=== PATIENT | male | born 1975 | race Two or more races ===

== ENCOUNTER 2019-12-15 04:29 | Inpatient (IN) | payer MEDICAID ==
[~2019-12-15] VITALS: Ht 162.6 cm; Wt 78.6 kg
[2019-12-15 06:25] LABS: BASOPHILS % 0.4 % (0.0-2.0); EOSINOPHILS % 0.1 % (0.0-5.0); HEMOGLOBIN. 12.1 g/dL (14.0-18.0); LYMPHOCYTES % 29.9 % (20.0-50.0); MEAN CORPUSCULAR HEMOGLOBIN 26.1 pg (28.0-32.0); MEAN CORPUSCULAR VOLUME 79.7 fL (80.0-94.0); MEAN PLATELET VOLUME 8.8 fl (7.4-10.4); MONOCYTES % 12.1 % (2.0-8.0); NEUTROPHILS % 57.5 % (40.0-76.0); PLATELET 99 x1000/uL (130-400); RED BLOOD CELL COUNT 4.65 mill/uL (4.7-6.1); RED CELL DISTRIBUTION WIDTH 24.7 % (11.6-14.6)
[2019-12-15 06:47] LABS: CHLORIDE 89 mEq/L (98-107)
[2019-12-15 06:53] LABS: ETHANOL BLOOD 50 mg/dL
[2019-12-15 07:20] LABS: CLARITY URINE CLEAR (CLEAR); COLOR URINE DARK YELLOW (YELLOW); KETONES URINE 3+ (NEGATIVE); LEUKOCYTE ESTERASE URINE TRACE (NEGATIVE); NITRITE URINE NEGATIVE (NEGATIVE); OCCULT BLOOD URINE NEGATIVE (NEGATIVE); PH URINE 7.5 (4.5-8.0); PROTEIN URINE 2+ (NEGATIVE); SPECIFIC GRAVITY URINE 1.026 (1.005-1.030)
[2019-12-15 08:49] LABS: *AMPHETAMINES SCREEN URINE NEGATIVE (NEGATIVE)
[2019-12-15 08:50] LABS: *BARBITURATES SCREEN URINE NEGATIVE (NEGATIVE); *BENZODIAZEPINES SCREEN URINE NEGATIVE (NEGATIVE); *COCAINE SCREEN URINE NEGATIVE (NEGATIVE); METHADONE URINE SCREEN NEGATIVE (NEGATIVE); OPIATES URINE SCREEN NEGATIVE (NEGATIVE); PHENCYCLIDINE URINE SCREEN NEGATIVE (NEGATIVE)
[2019-12-15 08:51] LABS: CANNABINOID URINE SCREEN NEGATIVE (NEGATIVE)
[2019-12-15 10:21] LABS: PLATELET ESTIMATE SLIGHTLY DECREASED
[2019-12-15] MEDS ORDERED: ONDANSETRON HCL 4MG/2ML INJ IV ONE (12:00)
[2019-12-15] MEDS ORDERED: SODIUM CHLORIDE 0.9% 1,000 ML IV ONE (12:00)
[2019-12-15] MEDS ORDERED: IOHEXOL-300 100 ML BOTTLE ONE (14:23)
[2019-12-15] MEDS ORDERED: DIPHENHYDRAMINE 50MG/ML VIAL IV PRN (14:30)
[2019-12-15] MEDS ORDERED: ONDANSETRON HCL 4MG/2ML INJ IV PRN (14:30)
[2019-12-15 14:55] LABS: PHOSPHORUS 2.1 mg/dL (2.5-4.9)
[2019-12-15] MEDS: SODIUM CHLORIDE 0.9% 1,000 ML IV SCH ×2 (15:26→23:54)
[2019-12-15] MEDS ORDERED: POTASSIUM CHLORIDE INJ 40 MEQ in DEXT 5% WATER 500 ML IV NR (15:30)
[2019-12-15 16:00] VITALS: BP 119/78
[2019-12-15] MEDS ORDERED: MVI, ADULT NO.1 10 ML, FOLIC ACID 1 MG, THIAMINE HCL 100 MG in SODIUM CHLORIDE 0.9% 1,0... IV SCH ×4 (16:00)
[2019-12-15 16:21] VITALS: BP 115/87
[2019-12-15 16:30] VITALS: BP 121/80
[2019-12-15 20:00] VITALS: BP 117/77
[2019-12-15] MEDS: FAMOTIDINE 20MG/2ML VIAL IV SCH (20:50)
[2019-12-16] VITALS: BP 114/75
[2019-12-16 04:00] VITALS: BP 108/70
[2019-12-16] MEDS: LORAZEPAM 2MG/ML CPJ IV PRN ×4 (05:19→20:41)
[2019-12-16 06:19] LABS: HEMATOCRIT. 30.6 % (42.0-52.0); HEMOGLOBIN. 10.2 g/dL (14.0-18.0); MEAN CORPUSCULAR HEMOGLOBIN 26.6 pg (28.0-32.0); MEAN CORPUSCULAR VOLUME 79.7 fL (80.0-94.0); PLATELET 71 x1000/uL (130-400); RED BLOOD CELL COUNT 3.84 mill/uL (4.7-6.1); RED CELL DISTRIBUTION WIDTH 23.5 % (11.6-14.6)
[2019-12-16 06:26] LABS: CHLORIDE 96 mEq/L (98-107)
[2019-12-16 08:00] VITALS: BP 118/71
[2019-12-16] MEDS: FAMOTIDINE 20MG/2ML VIAL IV SCH ×2 (09:41→21:10)
[2019-12-16] MEDS ORDERED: DIPHENHYDRAMINE 50MG/ML VIAL IV NR (10:45)
[2019-12-16] MEDS ORDERED: HALOPERIDOL LACTATE 5MG/ML VIAL IM NR (10:45)
[2019-12-16 12:00] VITALS: BP 113/77
[2019-12-16] MEDS: CHLORDIAZEPOXIDE 25MG CAPSULE PO SCH ×2 (13:27→21:10)
[2019-12-16 16:00] VITALS: BP 117/78
[2019-12-16] MEDS: POTASSIUM CHLORIDE 20MEQ/PACKET PO NR ×2 (18:14→18:25)
[2019-12-16] MEDS ORDERED: POTASSIUM PHOS,M-BASIC-D-BASIC 20 MMOL in DEXT 5% WATER 243.3333 ML IV ONE (19:30)
[2019-12-16 20:00] VITALS: BP 116/65
[2019-12-16] MEDS ORDERED: POTASSIUM CHLORIDE INJ 40 MEQ in DEXT 5% WATER 500 ML IV SCH (20:00)
[2019-12-16] MEDS ORDERED: POTASSIUM CHLORIDE 20MEQ/PACKET PO NR (21:00)
[2019-12-16] MEDS ORDERED: POTASSIUM CHLORIDE INJ 40 MEQ in DEXT 5% WATER 500 ML IV ONE (23:30)
[2019-12-17] VITALS: BP 111/69
[2019-12-17 01:21] LABS: PLATELET ESTIMATE SLIGHTLY DECREASED
[2019-12-17 04:00] VITALS: BP 115/61
[2019-12-17] MEDS: LORAZEPAM 2MG/ML CPJ IV PRN ×3 (04:46→16:52)
[2019-12-17] MEDS: CHLORDIAZEPOXIDE 25MG CAPSULE PO SCH ×3 (06:38→21:02)
[2019-12-17 07:16] LABS: BASOPHILS % 0.3 % (0.0-2.0); EOSINOPHILS % 0.2 % (0.0-5.0); HEMATOCRIT. 32.2 % (42.0-52.0); HEMOGLOBIN. 10.6 g/dL (14.0-18.0); LYMPHOCYTES % 9.5 % (20.0-50.0); MEAN CORPUSCULAR HEMOGLOBIN 26.7 pg (28.0-32.0); MEAN CORPUSCULAR VOLUME 81.5 fL (80.0-94.0); MEAN PLATELET VOLUME 8.9 fl (7.4-10.4); MONOCYTES % 13.2 % (2.0-8.0); NEUTROPHILS % 76.8 % (40.0-76.0); PLATELET 78 x1000/uL (130-400); RED BLOOD CELL COUNT 3.95 mill/uL (4.7-6.1); RED CELL DISTRIBUTION WIDTH 23.4 % (11.6-14.6)
[2019-12-17 07:20] LABS: CHLORIDE 102 mEq/L (98-107)
[2019-12-17 07:25] LABS: PHOSPHORUS 2.7 mg/dL (2.5-4.9)
[2019-12-17] MEDS: SODIUM CHLORIDE 0.9% 1,000 ML IV SCH ×2 (07:28→16:51)
[2019-12-17 08:00] VITALS: BP 109/75
[2019-12-17] MEDS: FAMOTIDINE 20MG/2ML VIAL IV SCH ×2 (08:45→21:01)
[2019-12-17] MEDS: HALOPERIDOL LACTATE 5MG/ML VIAL IM PRN ×2 (08:48→21:02)
[2019-12-17] MEDS ORDERED: POTASSIUM CHLORIDE INJ 40 MEQ in DEXT 5% WATER 500 ML IV NR ×2 (09:00→15:00)
[2019-12-17] MEDS ORDERED: ACETAMINOPHEN 650MG/20.3ML UDC PO PRN (11:45)
[2019-12-17 12:00] VITALS: BP 129/78
[2019-12-17 16:00] VITALS: BP 101/61
[2019-12-17 20:00] VITALS: BP 112/73
[2019-12-18] VITALS (7 sets, daily range): BP systolic 89–152; BP diastolic 54–85
[2019-12-18] MEDS: SODIUM CHLORIDE 0.9% 1,000 ML IV SCH ×2 (02:26→13:25)
[2019-12-18] MEDS: LORAZEPAM 2MG/ML CPJ IV PRN (02:26)
[2019-12-18] MEDS: CHLORDIAZEPOXIDE 25MG CAPSULE PO SCH ×3 (06:11→21:32)
[2019-12-18] MEDS: FAMOTIDINE 20MG/2ML VIAL IV SCH ×2 (09:36→21:32)
[2019-12-19] VITALS: BP 97/56
[2019-12-19 04:00] VITALS: BP 103/71
[2019-12-19] MEDS: SODIUM CHLORIDE 0.9% 1,000 ML IV SCH ×3 (05:56→17:10)
[2019-12-19] MEDS: CHLORDIAZEPOXIDE 25MG CAPSULE PO SCH ×3 (05:59→21:34)
[2019-12-19 06:57] LABS: HEMATOCRIT. 31.3 % (42.0-52.0); HEMOGLOBIN. 10.3 g/dL (14.0-18.0); MEAN CORPUSCULAR HEMOGLOBIN 27.2 pg (28.0-32.0); MEAN CORPUSCULAR VOLUME 82.4 fL (80.0-94.0); MEAN PLATELET VOLUME 8.8 fl (7.4-10.4); PLATELET 113 x1000/uL (130-400); RED CELL DISTRIBUTION WIDTH 22.5 % (11.6-14.6)
[2019-12-19 07:41] LABS: CHLORIDE 105 mEq/L (98-107)
[2019-12-19 07:50] LABS: PHOSPHORUS 3.4 mg/dL (2.5-4.9)
[2019-12-19 08:00] VITALS: BP 106/71
[2019-12-19] MEDS: FAMOTIDINE 20MG/2ML VIAL IV SCH ×2 (08:09→21:34)
[2019-12-19 12:00] VITALS: BP 106/64
[2019-12-19 16:00] VITALS: BP 93/55
[2019-12-19 18:06] LABS: PLATELET ESTIMATE DECREASED
[2019-12-19 20:00] VITALS: BP 112/59
[2019-12-19] MEDS: HALOPERIDOL LACTATE 5MG/ML VIAL IM PRN (21:34)
[2019-12-20] VITALS: BP 113/79
[2019-12-20 04:00] VITALS: BP 140/59
[2019-12-20] MEDS: CHLORDIAZEPOXIDE 25MG CAPSULE PO SCH ×3 (06:08→20:59)
[2019-12-20 08:00] VITALS: BP 111/72
[2019-12-20] MEDS: FAMOTIDINE 20MG/2ML VIAL IV SCH ×2 (09:39→20:59)
[2019-12-20] MEDS: THIAMINE HCL 100MG TABLET PO SCH (09:39)
[2019-12-20] MEDS: SODIUM CHLORIDE 0.9% 1,000 ML IV SCH ×2 (09:49→13:36)
[2019-12-20 12:00] VITALS: BP 100/66
[2019-12-20 16:00] VITALS: BP 100/68
[2019-12-20 20:00] VITALS: BP 96/55
[2019-12-21] VITALS: BP 104/71
[2019-12-21 04:00] VITALS: BP 101/62
[2019-12-21] MEDS: CHLORDIAZEPOXIDE 25MG CAPSULE PO SCH (06:14)
[2019-12-21 08:00] VITALS: BP 94/56
[2019-12-21] MEDS: THIAMINE HCL 100MG TABLET PO SCH (09:21)
[2019-12-21] MEDS: FAMOTIDINE 20MG/2ML VIAL IV SCH ×2 (09:21→20:14)
[2019-12-21] MEDS ORDERED: LORAZEPAM 1MG TABLET PO PRN (10:30)
[2019-12-21 12:00] VITALS: BP 94/58
[2019-12-21 16:00] VITALS: BP 104/71
[2019-12-21 20:00] VITALS: BP 99/60
[2019-12-22] VITALS: BP 111/63
[2019-12-22 04:00] VITALS: BP 102/52
[2019-12-22 08:00] VITALS: BP 115/70
[2019-12-22] MEDS: THIAMINE HCL 100MG TABLET PO SCH (09:03)
[2019-12-22] MEDS: FAMOTIDINE 20MG/2ML VIAL IV SCH (09:04)
[2019-12-22 12:00] VITALS: BP 92/58
[2019-12-22 16:16] VITALS: BP 97/58
== END 2019-12-22 17:17 | disposition home or self-care (01) | DRG 241 ==
LOC: ER 04:29 → 6EST 11:51 → ENRESERV 12:43 → 6EST 12-16 17:00
PROVIDERS: ADMIT Internal Medicine; ATTEND Internal Medicine
DX: K29.70 Gastritis, unspecified, without bleeding (principal); G92 Toxic encephalopathy; F10.231 Alcohol dependence with withdrawal delirium; E87.6 Hypokalemia; K76.0 Fatty (change of) liver, not elsewhere classified; E87.1 Hypo-osmolality and hyponatremia; R42 Dizziness and giddiness; Y90.9 Presence of alcohol in blood, level not specified; F10.229 Alcohol dependence with intoxication, unspecified
CPT/HCPCS: 36415; 71045; 74177; 80048; 80053; 80305; 80320; 81003; 82140; 83735; 84100; 84484; 85025; 93005; 97116; 97162; 97166; 99285; J1200; J1630; J2060; J2405; J3411; J3480; J3490; J7030; J7060; Q9967; G0480

== ENCOUNTER 2021-01-22 19:57 | Inpatient (IN) | payer MEDICAID ==
[~2021-01-22] VITALS: Ht 172.7 cm; Wt 90.7 kg
[2021-01-22] MEDS ORDERED: ONDANSETRON HCL 4MG/2ML INJ IV STA (22:46)
[2021-01-22] MEDS ORDERED: PANTOPRAZOLE SODIUM 40 MG/VIAL IV STA (22:46)
[2021-01-22] MEDS ORDERED: SODIUM CHLORIDE 0.9% 1,000 ML IV ONE (23:00)
[2021-01-22] MEDS ORDERED: PANTOPRAZOLE 80 MG in SODIUM CHLORIDE 0.9% 100 ML IV SCH (23:15)
[2021-01-22 23:37] LABS: BASOPHILS % 0.3 % (0.0-2.0); HEMATOCRIT. 28.7 % (42.0-52.0); HEMOGLOBIN. 10.1 g/dL (14.0-18.0); MEAN CORPUSCULAR HEMOGLOBIN 34.4 pg (28.0-32.0); MEAN CORPUSCULAR VOLUME 97.4 fL (80.0-94.0); MEAN PLATELET VOLUME 9.6 fl (7.4-10.4); MONOCYTES % 7.8 % (2.0-8.0); NEUTROPHILS % 68.9 % (40.0-76.0); PLATELET 52 x1000/uL (130-400); RED BLOOD CELL COUNT 2.95 mill/uL (4.7-6.1); RED CELL DISTRIBUTION WIDTH 15.1 % (11.6-14.6)
[2021-01-22 23:38] LABS: CHLORIDE 94 mEq/L (98-107)
[2021-01-22 23:41] LABS: INR 1.3; PROTHROMBIN TIME 13.3 sec (9.6-11.0)
[2021-01-22 23:42] LABS: ETHANOL BLOOD 269 mg/dL
[2021-01-23] MEDS: PANTOPRAZOLE 80 MG in SODIUM CHLORIDE 0.9% 100 ML IV SCH ×2 (01:35→14:03)
[2021-01-23] MEDS ORDERED: SODIUM CHLORIDE 0.9% 1,000 ML IV ONE (02:30)
[2021-01-23 02:46] LABS: CLARITY URINE CLEAR (CLEAR); COLOR URINE YELLOW (YELLOW); KETONES URINE NEGATIVE (NEGATIVE); LEUKOCYTE ESTERASE URINE NEGATIVE (NEGATIVE); NITRITE URINE NEGATIVE (NEGATIVE); OCCULT BLOOD URINE TRACE (NEGATIVE); PH URINE 6.5 (4.5-8.0); PROTEIN URINE NEGATIVE (NEGATIVE); SPECIFIC GRAVITY URINE 1.014 (1.005-1.030)
[2021-01-23 03:36] LABS: *AMPHETAMINES SCREEN URINE NEGATIVE (NEGATIVE); *BARBITURATES SCREEN URINE NEGATIVE (NEGATIVE); *BENZODIAZEPINES SCREEN URINE NEGATIVE (NEGATIVE)
[2021-01-23 03:37] LABS: *COCAINE SCREEN URINE NEGATIVE (NEGATIVE); CANNABINOID URINE SCREEN NEGATIVE (NEGATIVE); METHADONE URINE SCREEN NEGATIVE (NEGATIVE); OPIATES URINE SCREEN NEGATIVE (NEGATIVE); PHENCYCLIDINE URINE SCREEN NEGATIVE (NEGATIVE)
[2021-01-23] MEDS ORDERED: IOHEXOL-300 100 ML BOTTLE ONE (06:38)
[2021-01-23 10:00] VITALS: BP 99/59
[2021-01-23 11:00] VITALS: BP 99/59
[2021-01-23 12:00] VITALS: BP 102/65
[2021-01-23] MEDS ORDERED: MAGNESIUM/ALUMINUM HYDROXIDE/SIMETHICONE 30ML UDC PO PRN (15:00)
[2021-01-23] MEDS ORDERED: ACETAMINOPHEN 325MG TABLET PO PRN ×2 (15:00)
[2021-01-23] MEDS ORDERED: ONDANSETRON HCL 4MG/2ML INJ IV PRN (15:00)
[2021-01-23] MEDS ORDERED: CLONIDINE 0.1MG TABLET PO PRN (15:00)
[2021-01-23] MEDS ORDERED: DIPHENHYDRAMINE 50MG/ML VIAL IV PRN (15:00)
[2021-01-23] MEDS ORDERED: POTASSIUM CHLORIDE 20MEQ TABLET SR PO NR (15:00)
[2021-01-23] MEDS: SODIUM CHLORIDE 0.9% 1,000 ML IV SCH ×2 (15:00→23:42)
[2021-01-23 16:00] VITALS: BP 109/70
[2021-01-23] MEDS: PANTOPRAZOLE SODIUM 40 MG/VIAL IV SCH (16:30)
[2021-01-23] MEDS ORDERED: MVI, ADULT NO.1 10 ML, FOLIC ACID 1 MG, THIAMINE HCL 100 MG in SODIUM CHLORIDE 0.9% 1,0... IV ONE (16:30)
[2021-01-23] MEDS: SUCRALFATE 1 G/10 ML UDC PO SCH ×2 (16:30→20:06)
[2021-01-23 19:51] VITALS: BP 96/58
[2021-01-23] MEDS: DIAZEPAM 5 MG TABLET PO SCH (20:06)
[2021-01-24] VITALS (7 sets, daily range): BP systolic 99–114; BP diastolic 55–76
[2021-01-24] MEDS ORDERED: MAGNESIUM 2 G PREMIX 50 ML IV SCH (03:00)
[2021-01-24] MEDS: PANTOPRAZOLE SODIUM 40 MG/VIAL IV SCH ×2 (05:07→17:28)
[2021-01-24] MEDS: SUCRALFATE 1 G/10 ML UDC PO SCH ×4 (06:07→21:26)
[2021-01-24 06:29] LABS: BASOPHILS % 0.3 % (0.0-2.0); EOSINOPHILS % 0.5 % (0.0-5.0); HEMATOCRIT. 24.7 % (42.0-52.0); HEMOGLOBIN. 8.5 g/dL (14.0-18.0); LYMPHOCYTES % 20.4 % (20.0-50.0); MEAN CORPUSCULAR HEMOGLOBIN 34.9 pg (28.0-32.0); MEAN CORPUSCULAR VOLUME 100.7 fL (80.0-94.0); MEAN PLATELET VOLUME 9.9 fl (7.4-10.4); MONOCYTES % 11.5 % (2.0-8.0); NEUTROPHILS % 67.3 % (40.0-76.0); RED BLOOD CELL COUNT 2.45 mill/uL (4.7-6.1); RED CELL DISTRIBUTION WIDTH 14.7 % (11.6-14.6)
[2021-01-24 06:40] LABS: CHLORIDE 99 mEq/L (98-107)
[2021-01-24 06:45] LABS: PLATELET 39 x1000/uL (130-400)
[2021-01-24 06:49] LABS: PHOSPHORUS 2.1 mg/dL (2.5-4.9)
[2021-01-24] MEDS ORDERED: POTASSIUM CHLORIDE 20MEQ TABLET SR PO SCH (08:45)
[2021-01-24] MEDS ORDERED: POTASSIUM PHOS,M-BASIC-D-BASIC 20 MMOL in DEXT 5% WATER 250 ML IV SCH (10:00)
[2021-01-24] MEDS: DIAZEPAM 5 MG TABLET PO SCH ×2 (10:32→19:54)
[2021-01-24] MEDS: SODIUM CHLORIDE 0.9% 1,000 ML IV SCH ×2 (11:00→21:00)
[2021-01-25] VITALS: BP 106/59
[2021-01-25 04:00] VITALS: BP 111/71
[2021-01-25] MEDS: PANTOPRAZOLE SODIUM 40 MG/VIAL IV SCH ×2 (05:01→18:08)
[2021-01-25] MEDS: LORAZEPAM 2MG/ML CPJ IV PRN ×4 (06:19→23:03)
[2021-01-25] MEDS: SODIUM CHLORIDE 0.9% 1,000 ML IV SCH ×2 (06:20→18:08)
[2021-01-25] MEDS: SUCRALFATE 1 G/10 ML UDC PO SCH ×4 (06:25→20:43)
[2021-01-25] MEDS: DIAZEPAM 5 MG TABLET PO SCH ×2 (09:55→20:43)
[2021-01-25 19:01] LABS: PLATELET ESTIMATE MARKEDLY DECREASED
[2021-01-25 20:34] VITALS: BP 107/67
[2021-01-26 00:39] VITALS: BP 152/87
[2021-01-26] MEDS: SODIUM CHLORIDE 0.9% 1,000 ML IV SCH ×3 (03:00→22:37)
[2021-01-26 04:00] VITALS: BP 98/59
[2021-01-26] MEDS: LORAZEPAM 2MG/ML CPJ IV PRN ×2 (04:24→11:20)
[2021-01-26] MEDS: PANTOPRAZOLE SODIUM 40 MG/VIAL IV SCH ×2 (05:24→17:23)
[2021-01-26 06:36] LABS: HEMATOCRIT. 27.1 % (42.0-52.0); MEAN CORPUSCULAR HEMOGLOBIN 35.1 pg (28.0-32.0); MEAN CORPUSCULAR VOLUME 105.6 fL (80.0-94.0); MEAN PLATELET VOLUME 9.9 fl (7.4-10.4); PLATELET 104 x1000/uL (130-400); RED BLOOD CELL COUNT 2.57 mill/uL (4.7-6.1); RED CELL DISTRIBUTION WIDTH 14.7 % (11.6-14.6)
[2021-01-26 07:01] LABS: CHLORIDE 108 mEq/L (98-107)
[2021-01-26 07:06] LABS: PHOSPHORUS 1.6 mg/dL (2.5-4.9)
[2021-01-26 08:00] VITALS: BP 108/64
[2021-01-26] MEDS: SUCRALFATE 1 G/10 ML UDC PO SCH ×4 (08:58→20:39)
[2021-01-26] MEDS: DIAZEPAM 5 MG TABLET PO SCH ×2 (08:58→20:39)
[2021-01-26] MEDS ORDERED: POTASSIUM CHLORIDE 20MEQ/PACKET PO NR (10:24)
[2021-01-26] MEDS ORDERED: THIAMINE HCL 100 MG in SODIUM CHLORIDE 0.9% 49 ML IV NR (11:30)
[2021-01-26] MEDS ORDERED: POTASSIUM PHOS,M-BASIC-D-BASIC 30 MMOL in DEXT 5% WATER 500 ML IV NR (11:30)
[2021-01-26 12:00] VITALS: BP 101/60
[2021-01-26] MEDS ORDERED: MAGNESIUM 2 G PREMIX 50 ML IV NR (12:00)
[2021-01-26 16:00] VITALS: BP 101/60
[2021-01-26 20:50] VITALS: BP 95/51
[2021-01-26 23:04] LABS: PLATELET ESTIMATE DECREASED
[2021-01-27 02:46] VITALS: BP 104/58
[2021-01-27] MEDS: PANTOPRAZOLE SODIUM 40 MG/VIAL IV SCH ×2 (05:22→18:01)
[2021-01-27 05:39] VITALS: BP 107/48
[2021-01-27] MEDS: SUCRALFATE 1 G/10 ML UDC PO SCH ×4 (06:21→21:25)
[2021-01-27 07:56] LABS: HEMATOCRIT. 22.9 % (42.0-52.0); HEMOGLOBIN. 7.8 g/dL (14.0-18.0); MEAN CORPUSCULAR HEMOGLOBIN 35.3 pg (28.0-32.0); MEAN CORPUSCULAR VOLUME 103.8 fL (80.0-94.0); MEAN PLATELET VOLUME 9.7 fl (7.4-10.4); PLATELET 80 x1000/uL (130-400); RED CELL DISTRIBUTION WIDTH 14.9 % (11.6-14.6)
[2021-01-27 08:01] LABS: CHLORIDE 107 mEq/L (98-107)
[2021-01-27 08:07] LABS: PHOSPHORUS 2.9 mg/dL (2.5-4.9)
[2021-01-27] MEDS ORDERED: POTASSIUM CHLORIDE 20MEQ/PACKET PO SCH (08:30)
[2021-01-27] MEDS: DIAZEPAM 5 MG TABLET PO SCH ×2 (09:30→21:26)
[2021-01-27] MEDS: SODIUM CHLORIDE 0.9% 1,000 ML IV SCH ×2 (09:31→18:02)
[2021-01-27 20:00] VITALS: BP 85/54
[2021-01-27 22:20] LABS: PLATELET ESTIMATE DECREASED
[2021-01-28] VITALS: BP 87/51
[2021-01-28] MEDS: SODIUM CHLORIDE 0.9% 1,000 ML IV SCH ×2 (05:00→10:15)
[2021-01-28] MEDS: PANTOPRAZOLE SODIUM 40 MG/VIAL IV SCH ×2 (06:19→17:17)
[2021-01-28] MEDS: SUCRALFATE 1 G/10 ML UDC PO SCH ×4 (06:26→21:00)
[2021-01-28 08:00] VITALS: BP 91/59
[2021-01-28] MEDS: DIAZEPAM 5 MG TABLET PO SCH (09:00)
[2021-01-28 12:00] VITALS: BP 91/57
[2021-01-28 12:56] LABS: HEMATOCRIT 25.7 % (42.0-52.0); HEMOGLOBIN 8.6 g/dL (14.0-18.0); MEAN CORPUSCULAR HEMOGLOBIN 35.4 pg (28.0-32.0); MEAN CORPUSCULAR VOLUME 106.1 fL (80.0-94.0); PLATELET 108 x1000/uL (130-400); RED BLOOD CELL COUNT 2.42 mill/uL (4.7-6.1); RED CELL DISTRIBUTION WIDTH 15.4 % (11.6-14.6)
[2021-01-28 16:00] VITALS: BP 105/64
[2021-01-28 20:00] VITALS: BP 85/43
[2021-01-28] MEDS ORDERED: DIAZEPAM 5 MG TABLET PO SCH (21:00)
[2021-01-29 04:00] VITALS: BP 80/44
[2021-01-29] MEDS ORDERED: SODIUM CHLORIDE 0.9% 1,000 ML IV ONE (05:45)
[2021-01-29] MEDS: PANTOPRAZOLE SODIUM 40 MG/VIAL IV SCH (06:15)
[2021-01-29] MEDS: SUCRALFATE 1 G/10 ML UDC PO SCH ×2 (06:16→11:43)
[2021-01-29] MEDS: MIDODRINE HCL 5MG TABLET PO SCH ×3 (06:16→21:11)
[2021-01-29 08:00] VITALS: BP 92/59
[2021-01-29 09:31] LABS: HEMATOCRIT. 23.7 % (42.0-52.0); HEMOGLOBIN. 7.9 g/dL (14.0-18.0); MEAN CORPUSCULAR HEMOGLOBIN 35.3 pg (28.0-32.0); MEAN CORPUSCULAR VOLUME 106.1 fL (80.0-94.0); MEAN PLATELET VOLUME 9.7 fl (7.4-10.4); PLATELET 113 x1000/uL (130-400); RED BLOOD CELL COUNT 2.23 mill/uL (4.7-6.1); RED CELL DISTRIBUTION WIDTH 15.1 % (11.6-14.6)
[2021-01-29 09:43] LABS: CHLORIDE 109 mEq/L (98-107)
[2021-01-29 09:49] LABS: PHOSPHORUS 3.2 mg/dL (2.5-4.9)
[2021-01-29] MEDS ORDERED: POTASSIUM CHLORIDE 20MEQ TABLET SR PO NR (10:30)
[2021-01-29] MEDS ORDERED: MAGNESIUM 1 G PREMIX 100 ML IV NR (11:30)
[2021-01-29 12:00] VITALS: BP 93/51
[2021-01-29 16:00] VITALS: BP 93/51
[2021-01-29 16:40] LABS: PLATELET ESTIMATE DECREASED
[2021-01-29 20:00] VITALS: BP 91/52
[2021-01-29] MEDS: OMEPRAZOLE 20MG CAPSULE EXTENDED RELEASE PO SCH (21:10)
[2021-01-30] VITALS: BP 97/62
[2021-01-30 04:00] VITALS: BP 91/56
[2021-01-30] MEDS: MIDODRINE HCL 5MG TABLET PO SCH ×3 (05:20→21:54)
[2021-01-30] MEDS: OMEPRAZOLE 20MG CAPSULE EXTENDED RELEASE PO SCH ×2 (06:21→21:54)
[2021-01-30 08:00] VITALS: BP 89/56
[2021-01-30] MEDS: THIAMINE HCL 100MG TABLET PO SCH (09:00)
[2021-01-30 10:00] VITALS: BP 122/92
[2021-01-30 12:00] VITALS: BP 107/70
[2021-01-30 17:05] LABS: HEMATOCRIT. 23.5 % (42.0-52.0); HEMOGLOBIN. 8.1 g/dL (14.0-18.0); MEAN CORPUSCULAR HEMOGLOBIN 35.1 pg (28.0-32.0); MEAN CORPUSCULAR VOLUME 102.1 fL (80.0-94.0); MEAN PLATELET VOLUME 9.6 fl (7.4-10.4); PLATELET 145 x1000/uL (130-400); RED CELL DISTRIBUTION WIDTH 15.1 % (11.6-14.6)
[2021-01-30 17:54] LABS: PLATELET ESTIMATE NORMAL
[2021-01-30 20:00] VITALS: BP 88/59
[2021-01-31] VITALS: BP 86/51
[2021-01-31 04:00] VITALS: BP 87/53
[2021-01-31] MEDS: OMEPRAZOLE 20MG CAPSULE EXTENDED RELEASE PO SCH ×2 (06:30→21:49)
[2021-01-31] MEDS: MIDODRINE HCL 5MG TABLET PO SCH ×3 (06:30→21:49)
[2021-01-31 08:00] VITALS: BP 102/67
[2021-01-31] MEDS: THIAMINE HCL 100MG TABLET PO SCH (08:08)
[2021-01-31 10:24] LABS: HEMATOCRIT. 25.4 % (42.0-52.0); HEMOGLOBIN. 8.6 g/dL (14.0-18.0); MEAN CORPUSCULAR HEMOGLOBIN 34.7 pg (28.0-32.0); MEAN CORPUSCULAR VOLUME 102.6 fL (80.0-94.0); MEAN PLATELET VOLUME 9.6 fl (7.4-10.4); PLATELET 159 x1000/uL (130-400); RED BLOOD CELL COUNT 2.47 mill/uL (4.7-6.1); RED CELL DISTRIBUTION WIDTH 15.3 % (11.6-14.6)
[2021-01-31 10:26] LABS: INR 1.2; PROTHROMBIN TIME 12.3 sec (9.6-11.0)
[2021-01-31 10:33] LABS: CHLORIDE 102 mEq/L (98-107)
[2021-01-31 10:43] LABS: TOTAL IRON BINDING CAPACITY 258 ug/dL (250-450)
[2021-01-31 10:44] LABS: PHOSPHORUS 3.7 mg/dL (2.5-4.9)
[2021-01-31 11:53] LABS: PLATELET ESTIMATE NORMAL
[2021-01-31 12:53] LABS: FERRITIN 45 ng/mL (22-322)
[2021-01-31 13:04] LABS: HEPATITIS B SURFACE ANTIGEN NEGATIVE
[2021-01-31 13:34] LABS: HEPATITIS A AB IGM NEGATIVE (NEGATIVE)
[2021-01-31 20:00] VITALS: BP 95/52
[2021-02-01] VITALS: BP 100/60
[2021-02-01 04:00] VITALS: BP 94/60
[2021-02-01] MEDS: OMEPRAZOLE 20MG CAPSULE EXTENDED RELEASE PO SCH ×2 (06:26→22:00)
[2021-02-01] MEDS: MIDODRINE HCL 5MG TABLET PO SCH ×3 (06:26→22:01)
[2021-02-01 06:36] LABS: HEMATOCRIT. 24.6 % (42.0-52.0); HEMOGLOBIN. 8.1 g/dL (14.0-18.0); MEAN CORPUSCULAR HEMOGLOBIN 33.8 pg (28.0-32.0); MEAN CORPUSCULAR VOLUME 102.7 fL (80.0-94.0); MEAN PLATELET VOLUME 9.5 fl (7.4-10.4); PLATELET 168 x1000/uL (130-400); RED BLOOD CELL COUNT 2.39 mill/uL (4.7-6.1); RED CELL DISTRIBUTION WIDTH 15.9 % (11.6-14.6)
[2021-02-01 06:38] LABS: CHLORIDE 107 mEq/L (98-107)
[2021-02-01] MEDS: THIAMINE HCL 100MG TABLET PO SCH (10:06)
[2021-02-01 10:53] LABS: NUCLEATED RED BLOOD CELLS 1 /100 WBC
[2021-02-01 10:54] LABS: PLATELET ESTIMATE NORMAL
[2021-02-01] MEDS ORDERED: THIA100T72 PO (13:02)
[2021-02-01] MEDS ORDERED: MIDO5TAB4 PO (13:02)
[2021-02-01] MEDS ORDERED: POTASSIUM CHLORIDE 20MEQ TABLET SR PO NR (13:15)
[2021-02-01 20:00] VITALS: BP 104/82
[2021-02-02] VITALS: BP 111/80
[2021-02-02 04:00] VITALS: BP 118/57
[2021-02-02] MEDS: MIDODRINE HCL 5MG TABLET PO SCH ×3 (06:33→21:48)
[2021-02-02] MEDS: OMEPRAZOLE 20MG CAPSULE EXTENDED RELEASE PO SCH ×2 (06:33→21:47)
[2021-02-02 06:51] LABS: EOSINOPHILS % 1.1 % (0.0-5.0); HEMOGLOBIN. 7.9 g/dL (14.0-18.0); LYMPHOCYTES % 23.8 % (20.0-50.0); MEAN CORPUSCULAR HEMOGLOBIN 33.1 pg (28.0-32.0); MEAN CORPUSCULAR VOLUME 100.7 fL (80.0-94.0); MEAN PLATELET VOLUME 9.5 fl (7.4-10.4); MONOCYTES % 17.1 % (2.0-8.0); PLATELET 188 x1000/uL (130-400); RED BLOOD CELL COUNT 2.38 mill/uL (4.7-6.1); RED CELL DISTRIBUTION WIDTH 16.9 % (11.6-14.6)
[2021-02-02 06:58] LABS: CHLORIDE 107 mEq/L (98-107)
[2021-02-02 08:00] VITALS: BP 101/64
[2021-02-02] MEDS: THIAMINE HCL 100MG TABLET PO SCH (09:11)
[2021-02-02 12:00] VITALS: BP 96/58
[2021-02-02 16:00] VITALS: BP 105/60
[2021-02-02 20:00] VITALS: BP 109/71
[2021-02-03] VITALS: BP 108/78
[2021-02-03 04:00] VITALS: BP 98/64
[2021-02-03] MEDS: MIDODRINE HCL 5MG TABLET PO SCH ×3 (06:20→21:58)
[2021-02-03] MEDS: OMEPRAZOLE 20MG CAPSULE EXTENDED RELEASE PO SCH ×2 (06:20→21:58)
[2021-02-03 06:38] LABS: HEMATOCRIT. 23.6 % (42.0-52.0); HEMOGLOBIN. 7.7 g/dL (14.0-18.0); MEAN CORPUSCULAR HEMOGLOBIN 32.4 pg (28.0-32.0); MEAN CORPUSCULAR VOLUME 99.2 fL (80.0-94.0); MEAN PLATELET VOLUME 9.3 fl (7.4-10.4); PLATELET 207 x1000/uL (130-400); RED BLOOD CELL COUNT 2.38 mill/uL (4.7-6.1); RED CELL DISTRIBUTION WIDTH 17.5 % (11.6-14.6)
[2021-02-03 06:53] LABS: CHLORIDE 108 mEq/L (98-107)
[2021-02-03 08:00] VITALS: BP 101/70
[2021-02-03] MEDS: THIAMINE HCL 100MG TABLET PO SCH (10:14)
[2021-02-03 12:00] VITALS: BP 92/59
[2021-02-03 16:00] VITALS: BP 98/58
[2021-02-03 19:32] LABS: PLATELET ESTIMATE NORMAL
[2021-02-04] MEDS: OMEPRAZOLE 20MG CAPSULE EXTENDED RELEASE PO SCH (06:10)
[2021-02-04] MEDS: MIDODRINE HCL 5MG TABLET PO SCH (06:10)
[2021-02-04 08:00] VITALS: BP 91/44
[2021-02-04 08:50] VITALS: BP 91/44
== END 2021-02-04 09:33 | disposition home or self-care (01) | DRG 241 ==
LOC: ER 19:57 → MICUSO 01-23 04:45 → 8WST 01-23 08:44 → 6EST 01-25 10:23
PROVIDERS: ADMIT Internal Medicine; ATTEND Internal Medicine
DX: K29.21 Alcoholic gastritis with bleeding (principal); G93.41 Metabolic encephalopathy; D61.818 Other pancytopenia; D69.59 Other secondary thrombocytopenia; K76.0 Fatty (change of) liver, not elsewhere classified; I95.9 Hypotension, unspecified; K92.0 Hematemesis; E87.6 Hypokalemia; F10.10 Alcohol abuse, uncomplicated; Y90.9 Presence of alcohol in blood, level not specified; F17.210 Nicotine dependence, cigarettes, uncomplicated; D53.9 Nutritional anemia, unspecified; Y90.8 Blood alcohol level of 240 mg/100 ml or more; Z20.822 Contact with and (suspected) exposure to COVID-19; E83.39 Other disorders of phosphorus metabolism; E83.42 Hypomagnesemia; F10.139 Alcohol abuse with withdrawal, unspecified; Z59.0 Homelessness
CPT/HCPCS: 36415; 71045; 74177; 80048; 80053; 80076; 80305; 80320; 81003; 82248; 82270; 82607; 82728; 82746; 82962; 83540; 83550; 83735; 84100; 85025; 85027; 85044; 86705; 86709; 86803; 86850; 86900; 87340; 87426; 93005; 97162; 99285; C9113; J1200; J2060; J2405; J3411; J3475; J3490; J7030; J7050; J7060; Q9967; G0480